=== PATIENT | female | born 1965 | race Two or more races ===

== ENCOUNTER 2018-01-29 07:15 | Day surgery (SDC) | payer BC ==
[~2018-01-29 07:15] MED LIST: Buffered Lidocaine 0.9% SYRIN* 5 ML/SYR SYRINGE INTRADERM ONE; Dexamethasone IV* 4 MG/ML 1 ML (4 MG) IV SLOW PU ONE; Famotidine IV* 10 MG/ML 2 ML (20 mg) IV ONE
[2018-01-29] MEDS ORDERED: Famotidine IV* 10 MG/ML 2 ML (20 mg) ONE (07:27)
[2018-01-29] MEDS ORDERED: Ketorolac INJ* 30 MG/ML 1 ML VIAL ONE (07:28)
[2018-01-29] MEDS ORDERED: Buffered Lidocaine 0.9% SYRIN* 5 ML/SYR SYRINGE ONE (07:28)
[2018-01-29] MEDS ORDERED: ceFAZolin 2 GM in 100 MLS NS (*) BAG IVPB ONE (07:28)
[2018-01-29] MEDS ORDERED: Dexamethasone IV* 4 MG/ML 1 ML (4 MG) ONE (07:28)
[2018-01-29] MEDS ORDERED: Lidocaine 2.5%/Prilocain 2.5%* 5 GM TUBE ONE (07:28)
[2018-01-29] MEDS ORDERED: Bupivacaine 0.5% SDV PF* 10-30ML VIAL ONE (10:15)
[2018-01-29] MEDS ORDERED: Lidocaine 1%* 5 ML VIAL ONE (10:16)
[2018-01-29] MEDS ORDERED: Lidocaine 1% MPF wEPI 200,000* 30 ML SDV ONE (10:21)
[2018-01-29] MEDS ORDERED: oxyCODONE/Acetamin 5/325 MG* TAB PO PRN (11:29)
[2018-01-29] MEDS ORDERED: DiMENhydriNATE IV* 50 MG/ML VIAL IV PUSH PRN (11:29)
[2018-01-29] MEDS ORDERED: Scopolamine 1.5 mg* PATCH TRANSDERM PRN (11:29)
[2018-01-29] MEDS ORDERED: Ondansetron INJ* 2 MG/ML VIAL IV PRN (11:29)
[2018-01-29] MEDS ORDERED: Naloxone* 0.4 MG/ML 1 ML VIAL IV PRN (11:29)
--- NOTE | 2018-01-29 12:22 | RAD ---
PROCEDURE: Mammographic needle/wire localization of the left breast PREOPERATIVE DIAGNOSIS: Breast cancer POSTOPERATIVE DIAGNOSIS: Same COMPARISONS: January 06, 2018 BIOINFORMATICS SUPPORT SPECIALIST: Emma Trevino MD ANESTHESIA: Local anesthesia with 1% lidocaine without epinephrine FLUOROSCOPY TIME: None CONTRAST: None PROCEDURAL NARRATIVE: The procedure was explained to the patient who indicated understanding. Written and verbal informed consent was obtained. An opportunity was given to ask and answer questions. A timeout was performed. The patient was prepped and draped in the usual sterile fashion. Using mammographic guidance, a needle/wire localization system was advanced to the target lesion in the left breast. Once position was confirmed, the needle was removed using pin pull technique. Post localization mammography was performed. The wound was dressed and the wire was secured. FINDINGS: Post localization mammography demonstrates the hookwire in close proximity to the proximal marker clip at the neck of the wire. SPECIMENS: Specimen radiograph demonstrates the wire, axial marker clip, and a nodule within the specimen. The nodule is close to the margin of the specimen. COMPLICATIONS: None DISPOSITION: The patient tolerated the procedure well, without complications during or immediately following the procedure. IMPRESSION: 1. TECHNICALLY SUCCESSFUL, UNCOMPLICATED, MAMMOGRAPHICALLY GUIDED WIRE LOCALIZATION OF THE LEFT BREAST FOR SURGICAL EXCISIONAL BIOPSY. 2. SPECIMEN RADIOGRAPH DEMONSTRATES THE NODULE AT THE MARGIN OF THE SPECIMEN. THIS FINDING WAS DISCUSSED WITH DR. WATTS AFTER SUBMISSION OF THE SPECIMEN ON JANUARY 29 2018.
[2018-01-29 12:50] VITALS: BP 154/87
--- NOTE | 2018-01-29 20:33 | OP ---
CC: Dr. Pond; Dr. Celestin; [facility] * DATE OF OPERATION: 01/29/18 - [facility] DATE OF : 61 SURGEON: Selvin Arteaga MD MORTAR MIXER: DEE Tyler ANESTHESIOLOGIST: Baljinder Galindo MD ANESTHESIA: LMAC anesthesia. PRE-OP DIAGNOSIS: Left breast cancer. POST-OP DIAGNOSIS: Left breast cancer. OPERATIVE PROCEDURE: Needle localizing wide excision sentinel node biopsy of left breast cancer. DESCRIPTION OF PROCEDURE: The patient was supine on the operating room table. After adequate intravenous sedation, compression stockings, Wendi Hugger warmer, and intravenous antibiotics, the left breast and axillary region prepped with anesthetic, draped in a sterile fashion. Local infiltrative anesthesia was administered and curvilinear incision was created at the upper edge of the areola. The wire was pulled from inside and then a piece of breast tissue approximately 4 x 4 x 6 cm was removed and usual marking sutures were placed and sent fresh to Radiology. The Radiology confirms excision of the lesion, but it seems very close to the medial superior edge, so additional medial superior tissue along with some deep tissue was taken. This was marked with sutures as well and sent to Pathology. Hemostasis was obtained using electrocautery and the incision was closed with 3-0 and 5-0 Vicryl followed by Steri-Strips in the left axilla and sutures created. After local anesthetic, axillary tissue was entered and two sentinel nodes were identified, one with the count of 146, the other with a count of 79. No additional hot nodes could be identified. There was a small bit of pato tissue that was not hot; that was sent labeled additional left axillary tissue. Hemostasis was good. The closure was accomplished with 3-0 and 5-0 Vicryl followed by Steri-Strips. She tolerated the procedure well and was awakened and brought to Recovery in good condition. No complications. No drains. Pathologic specimens, as enumerated above. Sponge and instrument counts correct. Estimated blood loss was 50 mL. [id number]/[facility] #: [id number] [facility]
== END 2018-01-29 13:02 | disposition home or self-care (01) ==
LOC: SDS 07:15
PROVIDERS: ATTEND Surgery
DX: C50.112 Malignant neoplasm of central portion of left female breast (principal)
CPT/HCPCS: 78195; 88305; 88307; 88341; 88342; 88360; A9270-GY; A9541; J1100; J1885; J2001

== ENCOUNTER 2018-05-18 08:46 | Emergency (ER) | payer BC ==
[2018-05-18] MEDS ORDERED: Tetracaine 0.5% OPTH.SOL 4 ML* 1 DROP BTL ONE (08:55)
[2018-05-18] MEDS ORDERED: Tetan/Diph/Pertus SYR(Tdap)* 0.5 ML SYR(BOOSTRIX) use SYR IM ONE (08:56)
[2018-05-18] MEDS ORDERED: Fluorescein Sod TOPICAL 0.6* 0.6 MG TEST OPHTHALMIC ONE (08:56)
[2018-05-18] MEDS ORDERED: Erythromycin OPTH OINT* APPLIC OINT LEFT EYE ONE (09:20)
--- NOTE | 2018-05-18 09:20 | ED ---
Throat Pain/Nasal Congestion - HPI Summary HPI Summary: 53-year-old female presents with foreign body sensation in her left eye. She states after mowing she felt something in her left eye. She states that the object seems to change locations. She states the eye feels irritated. She denies any fevers. She admits to watery discharge, no pus. Tetanus is not up- to-date. Admits to some blurry vision. Does not wear contacts or glasses. No other injury. No history of glaucoma or eye issues. She did not try any saline in the eye. - History of Current Complaint Chief Complaint: EDEyeProblem Time Seen by Provider: 05/18/18 08:56 - Allergies/Home Medications Allergies/Adverse Reactions: Allergies Allergy/AdvReac Type Severity Reaction Status Date / Time No Known Allergies Allergy Verified 05/18/18 08:55 PMH/Surg Hx/FS Hx/Imm Hx Endocrine/Hematology History: Denies: Hx Diabetes Cardiovascular History: Denies: Hx Hypertension, Hx Pacemaker/ICD, Other Cardiovascular Problems/ Disorders Respiratory History: Denies: Hx Asthma Musculoskeletal History: Denies: Other Musculoskeletal History Sensory History: Denies: Hx Contacts or Glasses, Hx Hearing Aid Opthamlomology History: Denies: Hx Contacts or Glasses Neurological History: Reports: Hx Headaches Denies: Other Neuro Impairments/Disorders Psychiatric History: Denies: Hx Panic Disorder - Surgical History Surgery Procedure, [facility], and [facility] Hx Anesthesia Reactions: No Infectious Disease History: No Infectious Disease History: Denies: Traveled Outside the [place] in Last 30 Days - Social History Alcohol Use: Occasionally Alcohol Amount: 2 a week Substance Use Type: Reports: None Smoking Status (MU): Never Smoked Tobacco Have You Smoked in the Last Year: No Review of Systems Negative: Fever Positive: Blurred Vision, Drainage, Erythema Negative: Chest Pain Negative: Shortness Of Breath All Other Systems Reviewed And Are Negative: Yes Physical Exam Triage Information Reviewed: Yes Vital Signs On Initial Exam: Initial Vitals Temp Pulse Resp BP Pulse Ox 97.1 F 87 16 147/82 98 05/18/18 08:51 05/18/18 08:51 05/18/18 08:51 05/18/18 08:51 05/18/18 08:51 Vital Signs Reviewed: Yes Appearance: Positive: Well-Appearing Skin: Positive: Warm, Dry Head/Face: Positive: Normal Head/Face Inspection Eyes: Positive: EOMI, RACHELLE, Conjunctiva Inflammed, Other: - no uptake on fluorscein exam. Negative: Discharge ENT: Positive: Normal ENT inspection, Pharynx normal, TMs normal Respiratory/Lung Sounds: Positive: Clear to Auscultation, Breath Sounds Present Cardiovascular: Positive: Normal, RRR Abdomen Description: Positive: Nontender, Soft Bowel Sounds: Positive: Present Musculoskeletal: Positive: Normal Neurological: Positive: Normal Psychiatric: Positive: Normal Procedures - Eye Procedure Left Alcaine Drops Administered: Yes - no uptake on fluorescein Eye Irrigated w/ Saline (ccs): 1,000 Diagnostics - Vital Signs Vital Signs Temp Pulse Resp BP Pulse Ox 05/18/18 08:51 97.1 F 87 16 147/82 98 - Laboratory Lab Statement: Any lab studies that have been ordered have been reviewed, and results considered in the medical decision making process. EENT Course/Dx - Course Course Of Treatment: 53-year-old female presents with foreign body sensation in her left eye. She states after mowing she felt something in her left eye. She states that the object seems to change locations. She states the eye feels irritated. She denies any fevers. She admits to watery discharge, no pus. Tetanus is not up-to-date. Admits to some blurry vision. Does not wear contacts or glasses. No other injury. No history of glaucoma or eye issues. She did not try any saline in the eye. On exam left conjunctiva injected. No foreign body seen. No uptake on fluorescein exam. gave vita lens and feeling better. will prescribed erythromycin and have follow up with optho if no improvement. patient understand and agrees with plan. - Differential Diagnoses Differential Diagnoses: Conjunctivitis, Corneal Abrasion, Foreign Body - Diagnoses Provider Diagnoses: Sensation of foreign body in eye Discharge - Sign-Out/Discharge Documenting (check all that apply): Discharge/Admit/Transfer - Discharge Plan Condition: Good Disposition: HOME Patient Education Materials: Eye Foreign Body (ED) Referrals: Diana Pond MD [Primary Care Provider] - Basilio Michelle MD [Medical Doctor] - Additional Instructions: Place ointment on eye three times a day for 5 days Use artificial tears or saline to rinse eye for symptomatic relief Take Tylenol or ibuprofen for pain every 6 hours Follow up with ophthalmology if no improvement in 5 days Return to ED if develop any new or worsening symptoms - Billing Disposition and Condition Condition: GOOD Disposition: Home
[2018-05-18 11:41] VITALS: BP 132/88
== END 2018-05-18 11:20 | disposition home or self-care (01) ==
LOC: ED 08:46
DX: H57.8 Other specified disorders of eye and adnexa (principal)
CPT/HCPCS: 90471; 90715; 99282; A9270-GY

== ENCOUNTER 2021-03-16 14:00 | Inpatient (IN) ==
[2021-03-16 17:43] LABS: ABS Lymphocytes 0.7 10^3/ul (1.0-4.8); ABS Monocytes 0.3 10^3/ul (0-0.8); ABS Neutrophils 7.3 10^3/ul (1.5-7.7); Eosinophil % 0.2 %; Hematocrit 40 % (35-47); Hemoglobin 13.8 g/dL (12.0-16.0); Lymphocyte % 8.6 %; Mean Corpuscular HGB Conc 34 g/dL (31-36); Mean Corpuscular Hemoglobin 30 pg (27-31); Mean Corpuscular Volume 88 fL (80-97); Platelet Count 220 10^3/uL (150-450); Red Blood Count 4.55 10^6 /uL (3.70-4.87); Red Cell Distribution Width 14 % (10-15); White Blood Count 8.5 10^3/uL (3.5-10.8)
[2021-03-16] MEDS ORDERED: Morphine 10 MG/ML VIAL (1 ml) IV PRN (17:51)
[2021-03-16] MEDS ORDERED: Ondansetron 4 mg VIAL 2 MG/ML 2 ml VIAL IV PRN (17:51)
[2021-03-16 17:55] LABS: INR 1.06 (0.82-1.09)
[2021-03-16 18:00] LABS: Albumin 4.4 g/dL (3.2-5.2); Albumin/Globulin Ratio 1.6 (1-3); Calcium 9.9 mg/dL (8.6-10.3); EGFR African American 85.4 (>60); EGFR Non-African American 70.6 (>60); Globulin 2.8 g/dL (2-4); Potassium 3.8 mmol/L (3.5-5.0); Total Bilirubin 0.5 mg/dL (0.2-1.0); Total Protein 7.2 g/dL (6.4-8.9)
[2021-03-16] MEDS ORDERED: Enoxaparin 40 MG/0.4 ML SYR SUBCUT SCH (18:00)
[2021-03-16] MEDS ORDERED: NS 0.9% 1000 ml BAG 1,000 ML IV SCH (23:59)
[2021-03-17] MEDS: oxyCODONE/Acetamin 5/325 mg TAB PO PRN ×2 (00:39→23:40)
[2021-03-17] MEDS ORDERED: Enoxaparin 40 MG/0.4 ML SYR SUBCUT ONE (16:00)
[2021-03-18] MEDS: LACTATED RINGERS 1000 ML BAG IV SCH ×3 (00:09→23:38)
[2021-03-18] MEDS ORDERED: Lidocaine 2% PF 5 ML VIAL ONE (15:06)
[2021-03-18] MEDS ORDERED: Propofol 10 MG/ML 20 ML BTL ONE (15:06)
[2021-03-18] MEDS ORDERED: Midazolam 2 mg/2 ml VIAL 1 mg/ml 2 ml VIAL (2 mg) ONE (15:06)
[2021-03-18] MEDS ORDERED: fentaNYL 250 mcg/5 ml 50 MCG/ML 5 ml VIAL (250 MCG) ONE (15:06)
[2021-03-18] MEDS ORDERED: ceFAZolin VIAL VIAL ONE (16:05)
[2021-03-18] MEDS ORDERED: Rocuronium 50 mg VIAL 10 mg/ml 5 ml VIAL (50 mg) ONE (16:06)
[2021-03-18] MEDS ORDERED: Dexamethasone IV 4 MG/ML VIAL 1 ml VIAL ONE (16:41)
[2021-03-18] MEDS ORDERED: Ondansetron 4 mg VIAL 2 MG/ML 2 ml VIAL ONE (16:41)
[2021-03-18] MEDS ORDERED: Ketamine HCL 50 mg/ml 10 ml VIAL (500 MG) ONE (16:42)
[2021-03-18] MEDS ORDERED: HYDROmorphone 1 MG/1 ML SYRINGE ONE (17:51)
[2021-03-18] MEDS ORDERED: fentaNYL 100 mcg/2 ml 50 MCG/ML VIAL ONE (18:41)
[2021-03-18] MEDS ORDERED: hydrALAZINE 20 mg/ml 1 ML Vial IV ONE (18:44)
[2021-03-18] MEDS ORDERED: EPHEDrine (Pressors) 50 MG/ML VIAL ONE (19:07)
[2021-03-18] MEDS ORDERED: Acetaminophen IV 1 GM/100ML 100 ML ONE (19:14)
[2021-03-18] MEDS ORDERED: HYDROmorphone 1 MG/1 ML SYRINGE IV PRN (19:19)
[2021-03-18] MEDS ORDERED: Naloxone 0.4 mg VIAL 0.4 mg/ml 1 ml VIAL IV PRN (19:19)
[2021-03-18] MEDS ORDERED: Prochlorperazine 5 mg/ml 2 ml VIAL (10 mg) IV PRN (19:19)
[2021-03-18] MEDS ORDERED: diPHENhydraMINE IV 50 MG/ML 1 ml VIAL (BENADRYL) IV PRN (19:19)
[2021-03-18] MEDS ORDERED: Morphine 2 MG/ML SYRINGE IV PRN (21:23)
[2021-03-18] MEDS ORDERED: oxyCODONE/Acetamin 5/325 mg TAB PO PRN (22:00)
[2021-03-19] MEDS: [UNRECOGNIZED DRUG - OTHER] IVPB SCH ×3 (01:25→17:02)
[2021-03-19 04:58] LABS: Hematocrit 38 % (35-47); Hemoglobin 12.9 g/dL (12.0-16.0); Mean Platelet Volume 8.4 fL (7.4-10.4); Platelet Count 165 10^3/uL (150-450)
[2021-03-19 05:14] LABS: Calcium 9.2 mg/dL (8.6-10.3); Potassium 3.8 mmol/L (3.5-5.0)
[2021-03-19 05:20] LABS: EGFR African American 109.4 (>60); EGFR Non-African American 90.4 (>60)
[2021-03-19] MEDS: Enoxaparin 40 MG/0.4 ML SYR SUBCUT SCH (05:29)
[2021-03-20] MEDS: [UNRECOGNIZED DRUG - OTHER] IVPB SCH ×3 (00:07→16:05)
[2021-03-20 04:37] LABS: Hematocrit 33 % (35-47); Hemoglobin 11.4 g/dL (12.0-16.0); Mean Platelet Volume 8.3 fL (7.4-10.4); Platelet Count 176 10^3/uL (150-450)
[2021-03-20 04:55] LABS: EGFR African American 121.9 (>60); EGFR Non-African American 100.7 (>60); Potassium 3.9 mmol/L (3.5-5.0)
[2021-03-20] MEDS: Enoxaparin 40 MG/0.4 ML SYR SUBCUT SCH (05:21)
[2021-03-20 15:20] VITALS: BP 128/53
== END 2021-03-20 12:00 | disposition home health service (06) | DRG 313 ==
LOC: ED 14:00 → INTOOBSV 17:51 → SSU 17:51
PROVIDERS: ADMIT Orthopaedic Surgery Hand Surgery; ATTEND Orthopaedic Surgery